=== PATIENT | female | born 1995 | race Caucasian/White ===

== ENCOUNTER 2025-05-13 02:59 | Inpatient (IN) ==
[2025-05-13] MEDS ORDERED: LACTATED RINGER'S 1,000 ML IV PRN (03:13)
[2025-05-13] MEDS ORDERED: LIDOCAINE 1% LOCAL 20 ML VIAL INFIL PRN (03:13)
--- NOTE | 2025-05-13 03:17 | History & Physical Report ---
Date of Service May 13, 2025 Assessment & Plan (1) Active labor at term: Plan: 29-year-old, -0-0-1 at 40 weeks of gestation presenting today in active labor with contractions, Vital signs stable afebrile, GBS negative, heart rate reassuring, Desires expectant management and no epidural, Plan to admit, monitor, labs, anticipate . (2) 40 weeks gestation of : History of Present Illness Primary Care Provider: Nathan Ramsey MD Patient is a 29-year-old -0-0-1 at 40 weeks of gestation who woke up about 2 hours ago with contractions. They have been very regular and painful. She denies leakage of fluid or vaginal bleeding. She reports good movements. Her has been uncomplicated, denies medical problems, GBS negative. Allergies Allergy/AdvReac Type Severity Reaction Status Date / Time No Known Allergies Allergy Verified 08/19/15 07:33 Home Medications Medication Instructions Recorded Confirmed Type Control Pills 1 tab PO DAILY #0 tabs 08/19/15 History Calcium Carbonate (Tums) ##0 08/19/15 History Ibuprofen (Advil) 400 mg PO #0 tabs 08/19/15 History Patient History Medical History No pertinent past medical history Surgical History No pertinent past surgical history Social History Smoking Status: Never smoker Hx Alcohol Use: No Hx Substance Use: No Feels Safe at Home: Yes OB History Full-term , 20 months ago, precipitous labor and delivery [employer] History no history of STDs, no history of chlamydia, gonorrhea, herpes Review of Systems as per Subjective / HPI Physical Exam Constitutional: WD/WN, vitals as above well developed, well nourished and + acute distress Genitourinary: normal external appearance OB Exam Abdomen: + vertex Manual OB Exam: + cervical dilation 8 cm, + cervical effacement 80% and + station + 1 OB Exam Monitor Tracing: + external uterine monitor used and + c ategory I Results & Data Vital Signs (Past 12 Hours) Vital Signs Pulse BP 05/13/25 03:12 104 H 127/74
[2025-05-13] MEDS: OXYTOCIN 30 UNITS/NSS 30 UNITS/500 ML BAG IV PRN (03:42)
[2025-05-13] MEDS ORDERED: OXYTOCIN 30 UNITS/NSS 30 UNITS/500 ML BAG IV PRN (03:49)
[2025-05-13] MEDS ORDERED: HYDROCORTISONE ACETATE 25 MG SUPP PR PRN (03:49)
--- NOTE | 2025-05-13 03:57 | Delivery Summary ---
Vaginal Delivery Summary Date of Service May 13, 2025 Vaginal Delivery Summary Patient desired artificial rupture of membranes. Her cervix was 9 cm dilated and head was at +1 station, AROM was done and clear fluid was obtained. Soon after that patient felt pressure and wanted to push. She pushed through 3 contractions and delivered the head through intact perineum. The shoulders were delivered with minimal traction and baby was handed off to the mother by her mother nose were suctioned and cord was clamped times and cut at 1 minute delay. Baby was vigorously moving and crying. Vagina and perineum were checked for lacerations. They were intact and no lacerations were found. Placenta was delivered spontaneously intact and complete. Lower uterine segment was cleared of all clots and debris's, fundus was firm. QBL was 250 mL. Mom and baby tolerated procedure well. Baby was a viable male infant Apgars 8/9 and weight is pending. No complications happened and I was present during the whole procedure.
[2025-05-13] MEDS: ACETAMINOPHEN 325 MG TAB PO PRN (04:38)
[2025-05-13] MEDS: IBUPROFEN 600 MG TAB PO PRN (04:38)
[2025-05-13] MEDS: MEASLES, MUMPS & RUBELLA VIRUS VACCINE (MMR) 0.5ML VIAL SQ ONE (06:08)
[2025-05-13 06:09] LABS: Hematocrit (blood only) 32.9 % (37.0-47.0); Hemoglobin 11.4 g/dl (12.0-16.0); Mean Corpuscular Hemoglobin 32.7 pg (25.0-34.0); Mean Corpuscular Volume 94.3 fL (80.0-100.0); Platelet Count 195 K/uL (130-400); RDW Standard Deviation 43.5 fL (36.4-46.3); Red Blood Count 3.49 M/uL (4.20-5.40); White Blood Count 20.07 K/ul (4.8-10.8)
[2025-05-13] MEDS: METHYLERGONOVINE MALEATE 0.2 MG TAB PO SCH (06:10)
[2025-05-13] MEDS: BENZOCAINE 20% SPRY 85 APPLN/85 GM CAN EXT PRN (06:28)
[2025-05-13] MEDS: FERROUS SULFATE 325 MG TAB PO SCH (08:04)
[2025-05-13] MEDS: DOCUSATE SODIUM 100 MG CAP PO SCH (08:04)
[2025-05-13] MEDS: PRENATAL VITAMIN 1 TAB PO SCH (08:04)
[2025-05-13 08:41] VITALS: O2SAT 98
[2025-05-13] MEDS: DIPHTHER/TETAN/PERTUS Vaccine (Tdap, Adol/Adult) 0.5mL IM ONE (19:13)
[2025-05-13 22:57] VITALS: RESP 16
[2025-05-14 06:23] LABS: Hematocrit (blood only) 31.9 % (37.0-47.0); Hemoglobin 10.6 g/dl (12.0-16.0); Mean Corpuscular Hemoglobin 32.1 pg (25.0-34.0); Mean Corpuscular Volume 96.7 fL (80.0-100.0); Platelet Count 185 K/uL (130-400); RDW Standard Deviation 45.6 fL (36.4-46.3); Red Blood Count 3.30 M/uL (4.20-5.40); White Blood Count 12.85 K/ul (4.8-10.8)
--- NOTE | 2025-05-14 07:59 | Obstetrical Progress Note ---
Date of Service May 14, 2025 Assessment & Plan Admission and Anticipated Discharge Date Admission Date: May 13, 2025 Subjective abdomen soft and non tender no calf tenderness ambulating well vaginal bleeding scant hgb 10.6 Results & Data Vital Signs (Past 12 Hours) Vital Signs Temp Pulse Resp BP Pulse Ox O2 Del Method 05/13/25 22:56 36.6 C 83 16 97/63 L 98 Room Air
[2025-05-14 08:35] VITALS: BP 114/85; PULSE 68; TEMP 97.3
== END 2025-05-14 12:02 | disposition home or self-care (01) | DRG 807 ==
LOC: OPB 02:59 → 4S1 03:06 → 4E2 06:49